=== PATIENT | female | born 1990 | race Two or more races ===

== ENCOUNTER 2023-09-18 09:26 | Emergency (ER) | payer MEDICAID ==
[~2023-09-18] VITALS: Ht 157.5 cm; Wt 61.3 kg
[2023-09-18] MEDS ORDERED: ONDANSETRON HCL 4 MG/2 ML VIAL IV ONE (10:00)
[2023-09-18] MEDS ORDERED: SODIUM CHLORIDE 0.9% 1,000 ML IVB ONE (10:00)
[2023-09-18] MEDS ORDERED: PANTOPRAZOLE 40 MG/10 ML VIAL INJ IV ONE (10:00)
[2023-09-18 10:25] LABS: Basophils # (auto) 0 10 ^3/uL (0-0.2); Basophils % (auto) 0.3 % (0.0-2.0); Eosinophils # (auto) 0 10 ^3/uL (0-0.8); Hematocrit 42.4 % (36.0-46.0); Hemoglobin 14.3 g/dL (12.2-16.2); Lymphocytes # (auto) 2.3 10 ^3/uL (0.4-5.4); Lymphocytes % (auto) 24.7 % (10.0-50.0); Mean Corpuscular Hemoglobin 31.4 pg (28.0-32.0); Mean Corpuscular Hgb Conc. 33.6 g/dL (32.0-36.0); Mean Corpuscular Volume 93.3 fL (80.0-100.0); Monocytes # (auto) 0.9 10 ^3/uL (0-1.3); Monocytes % (auto) 9.7 % (0.0-12.0); Neutrophils % (auto) 65.3 % (37.0-80.0); Red Blood Cells 4.55 10^6/uL (4.0-5.20); Red Cell Distribution Width 13.4 % (11.8-14.3); White Blood Cell 9.2 10^3/uL (4.4-10.8)
[2023-09-18 10:27] LABS: Alanine Aminotransferase 26 U/L (7-40); Albumin 5.1 g/dL (3.2-4.8); Alkaline Phosphatase 50 U/L (46-116); Anion Gap 16 (5-15); Aspartate Aminotransferase 19 U/L (13-40); BUN/Creatinine Ratio 22.4 (10.0-20.0); Blood Urea Nitrogen 19 mg/dL (9-23); Calcium 10.2 mg/dL (8.5-10.1); Carbon Dioxide 21 mmol/L (20-30); Chloride 100 mmol/L (98-107); Glucose 87 mg/dL (74-106); Potassium 3.9 mmol/L (3.5-5.1); Sodium 137 mmol/L (136-145)
[2023-09-18 10:28] LABS: Bilirubin, Total 0.7 mg/dL (0.2-1.0); Total Protein 7.9 g/dL (5.7-8.2)
[2023-09-18 10:39] LABS: Urine Bacteria NONE SEEN /hpf (None Seen); Urine Blood Negative /uL (Negative); Urine Clarity Clear (Clear); Urine Color Yellow (Yellow); Urine Mucus FEW (None Seen); Urine Protein, UAD 1+ (Negative); Urine Specific Gravity 1.031 (1.001-1.035); Urine WBC 3 /hpf (0 - 5)
[2023-09-18 11:34] LABS: INR 1.02 (0.9-1.15); Partial Thromboplastin Time 26.6 SEC (24.5-34.5); Prothrombin Time 10.9 sec (9.3-11.8)
[2023-09-18] MEDS ORDERED: ZOFR4T PO (12:36)
[2023-09-18] MEDS ORDERED: ACET-1304 PO (12:36)
[2023-09-18] MEDS ORDERED: OMEP20TA PO (12:36)
[2023-09-18 12:53] VITALS: BP 110/70; PULSE 78; RESP 19; TEMP 97.7; O2SAT 97
== END 2023-09-18 12:56 | disposition home or self-care (01) ==
LOC: ER 09:26
DX: K29.00 Acute gastritis without bleeding (principal); R10.2 Pelvic and perineal pain; F41.9 Anxiety disorder, unspecified; F32.9 Major depressive disorder, single episode, unspecified; F10.90 Alcohol use, unspecified, uncomplicated; Z98.890 Other specified postprocedural states; Z88.2 Allergy status to sulfonamides; Z79.899 Other long term (current) drug therapy; Y90.0 Blood alcohol level of less than 20 mg/100 ml
CPT/HCPCS: 36415; 74022; 80053; 81001; 81025; 83690; 84702; 85025; 85610; 85730; 96374; 96375; 99284; C9113; J2405

== ENCOUNTER 2024-03-16 10:56 | Inpatient (IN) | payer MEDICAID, OTHER ==
[~2024-03-16] VITALS: Ht 157.5 cm; Wt 65.1 kg
[~2024-03-16 10:56] MED LIST: ACET-1304 PO; OMEP20TA PO; ZOFR4T PO
[2024-03-16 11:30] LABS: Basophils # (auto) 0 10 ^3/uL (0-0.2); Basophils % (auto) 0.3 % (0.0-2.0); Eosinophils # (auto) 0 10 ^3/uL (0-0.8); Eosinophils % (auto) 0.2 % (0.0-7.0); Hematocrit 41.6 % (36.0-46.0); Hemoglobin 13.9 g/dL (12.2-16.2); Lymphocytes # (auto) 1.5 10 ^3/uL (0.4-5.4); Lymphocytes % (auto) 9.5 % (10.0-50.0); Mean Corpuscular Hemoglobin 31.6 pg (28.0-32.0); Mean Corpuscular Hgb Conc. 33.3 g/dL (32.0-36.0); Mean Corpuscular Volume 94.9 fL (80.0-100.0); Monocytes # (auto) 0.5 10 ^3/uL (0-1.3); Monocytes % (auto) 3.2 % (0.0-12.0); Neutrophils # (auto) 13.6 10 ^3/uL (1.6-8.6); Neutrophils % (auto) 86.8 % (37.0-80.0); Red Blood Cells 4.38 10^6/uL (4.0-5.20); Red Cell Distribution Width 13.8 % (11.8-14.3); White Blood Cell 15.7 10^3/uL (4.4-10.8)
[2024-03-16 11:45] LABS: INR 1.04 (0.9-1.15); Partial Thromboplastin Time 22.4 SEC (24.5-34.5)
[2024-03-16 11:47] LABS: Alanine Aminotransferase 29 U/L (7-40); Alkaline Phosphatase 45 U/L (46-116); Anion Gap 16 (5-15); Aspartate Aminotransferase 27 U/L (13-40); Blood Urea Nitrogen 14 mg/dL (9-23); Calcium 9.9 mg/dL (8.5-10.1); Carbon Dioxide 18 mmol/L (20-30); Chloride 108 mmol/L (98-107); Glucose 67 mg/dL (74-106); Potassium 3.8 mmol/L (3.5-5.1); Sodium 142 mmol/L (136-145)
[2024-03-16 11:48] LABS: Bilirubin, Total 0.5 mg/dL (0.2-1.0); Lactic Acid w/Reflex 5.9 mmol/L (0.4-2.0); Total Protein 7.9 g/dL (5.7-8.2)
[2024-03-16 11:59] LABS: Lipase 28 U/L (12-53)
[2024-03-16] MEDS: SODIUM CHLORIDE 0.9% 1,000 ML IVB ONE (12:08)
[2024-03-16] MEDS: METOCLOPRAMIDE HCL 5MG/ml INJ 2ml VIAL IV ONE (12:09)
[2024-03-16] MEDS: MORPHINE SULFATE INJ 2 MG/ml SYRG IV ONE (12:37)
[2024-03-16] MEDS: PIPERACILLIN-TAZOB 3.375GM 100 ML IV ONE (12:40)
[2024-03-16] MEDS: PANTOPRAZOLE 80 MG in SODIUM CHL 0.9% 100 ML IV ONE (13:20)
[2024-03-16] MEDS: SODIUM CHLORIDE 0.9% 1,000 ML IV ONE ×2 (14:09→16:36)
[2024-03-16] MEDS: PANTOPRAZOLE 40mg/50ML NS AE 50 ML IV ONE (14:10)
[2024-03-16] MEDS: OCTREOTIDE ACETATE 100 MCG in SODIUM CHL 0.9% 50 ML IV ONE (14:13)
[2024-03-16] MEDS: OCTREOTIDE ACETATE 500 MCG in SODIUM CHL 0.9% 99 ML IV SCH (14:29)
[2024-03-16] MEDS: NOREPINEPHRINE 8 MG/250ML KIT 250 ML IV ONE (15:20)
[2024-03-16] MEDS: NOREPINEPHRINE 8 MG/250ML KIT 250 ML IV SCH (15:20)
[2024-03-16] MEDS ORDERED: NITROGLYCERIN 0.4 MG SL TAB SL PRN (16:00)
[2024-03-16] MEDS ORDERED: MORPHINE SULFATE INJ 2 MG/ml SYRG IV PRN (16:00)
[2024-03-16] MEDS ORDERED: VANCOMYCIN PER PHARMACY 0 MG IV SCH (16:00)
[2024-03-16] MEDS ORDERED: ACETAMINOPHEN 325 MG TAB PO PRN (16:00)
[2024-03-16] MEDS: ONDANSETRON HCL 4 MG/2 ML VIAL IV ONE (16:10)
[2024-03-16] MEDS: CEFEPIME 1GM/ 50ML 50 ML IV ONE (16:32)
[2024-03-16 17:16] LABS: Urine Bacteria None Seen /hpf (None Seen)
[2024-03-16 17:28] LABS: Amphetamine Screen, Urine Neg (NEGATIVE)
[2024-03-16 17:29] LABS: Barbiturate Scree,Urine Neg (NEGATIVE); Benzodiazephine Screen, Urine Neg (NEGATIVE); Cannabinoid Screen, Urine Pos (NEGATIVE); Cocaine Screen, Urine Neg (NEGATIVE); Opiate Scree,Urine Neg (NEGATIVE); Phencyclidine Screen, Urine Neg (NEGATIVE)
[2024-03-16 17:38] LABS: Urine Blood Negative /uL (Negative); Urine Clarity Turbid (Clear); Urine Color Yellow (Yellow); Urine Mucus FEW (None Seen); Urine Protein, UAD 1+ (Negative); Urine Specific Gravity 1.035 (1.001-1.035); Urine Urobilinogen Normal (Negative); Urine WBC 5 /hpf (0 - 5)
[2024-03-16] MEDS: VANCOMYCIN 1GM/200ML 200 ML IV ONE (19:30)
[2024-03-16 19:42] VITALS: PULSE 80; RESP 18; O2SAT 97
[2024-03-16] MEDS: SODIUM CHLORIDE 0.9% 1,000 ML IV SCH (20:27)
[2024-03-16] MEDS: ONDANSETRON HCL 4 MG/2 ML VIAL IV PRN (20:30)
[2024-03-16] MEDS: OCTREOTIDE ACETATE 500 MCG/ML VL ONE (23:46)
[2024-03-17] MEDS: CEFEPIME 1GM/ 50ML 50 ML IV SCH (05:04)
[2024-03-17 06:36] LABS: Basophils # (auto) 0 10 ^3/uL (0-0.2); Basophils % (auto) 0.2 % (0.0-2.0); Eosinophils # (auto) 0 10 ^3/uL (0-0.8); Eosinophils % (auto) 0.1 % (0.0-7.0); Hematocrit 35.9 % (36.0-46.0); Hemoglobin 11.9 g/dL (12.2-16.2); Lymphocytes # (auto) 3.5 10 ^3/uL (0.4-5.4); Lymphocytes % (auto) 22.8 % (10.0-50.0); Mean Corpuscular Hemoglobin 31.2 pg (28.0-32.0); Mean Corpuscular Hgb Conc. 33.1 g/dL (32.0-36.0); Mean Corpuscular Volume 94.3 fL (80.0-100.0); Monocytes # (auto) 1.4 10 ^3/uL (0-1.3); Monocytes % (auto) 8.9 % (0.0-12.0); Neutrophils # (auto) 10.5 10 ^3/uL (1.6-8.6); Red Cell Distribution Width 13.7 % (11.8-14.3); White Blood Cell 15.5 10^3/uL (4.4-10.8)
[2024-03-17 06:43] LABS: Alanine Aminotransferase 24 U/L (7-40); Alkaline Phosphatase 36 U/L (46-116); Calcium 8.2 mg/dL (8.5-10.1); Chloride 111 mmol/L (98-107)
[2024-03-17 06:44] LABS: Albumin 3.7 g/dL (3.2-4.8); Anion Gap 8 (5-15); Aspartate Aminotransferase 12 U/L (13-40); BUN/Creatinine Ratio 15.9 (10.0-20.0); Bilirubin, Total 0.7 mg/dL (0.2-1.0); Blood Urea Nitrogen 10 mg/dL (9-23); Carbon Dioxide 21 mmol/L (20-30); Glucose 123 mg/dL (74-106); Potassium 3.9 mmol/L (3.5-5.1); Sodium 140 mmol/L (136-145)
[2024-03-17 07:30] VITALS: PULSE 70; RESP 16; O2SAT 97
[2024-03-17] MEDS: metroNIDAZOLE 500MG/100ML 100 ML IV SCH (14:27)
[2024-03-17] MEDS ORDERED: ALPRAZolam 0.25 MG TAB PO PRN (15:30)
[2024-03-17 15:38] LABS: Erythrocyte Sedimentation Rate 5 mm/hr (0-20)
[2024-03-17] MEDS: PANTOPRAZOLE 40 MG TAB PO SCH (16:44)
[2024-03-17 17:25] VITALS: BP 113/59; PULSE 87; RESP 18; TEMP 97.4; O2SAT 97
[2024-03-17] MEDS ORDERED: ESCI1TAB37 PO (17:28)
[2024-03-17] MEDS ORDERED: NITR100C6 PO (17:28)
[2024-03-17] MEDS ORDERED: PANT40T PO (17:28)
[2024-03-17] MEDS ORDERED: SEMA4INJ SC (17:28)
[2024-03-17 17:30] VITALS: PULSE 87; RESP 14; O2SAT 94
[2024-03-17] MEDS: VANCOMYCIN 1GM/200ML 200 ML IV SCH (18:30)
[2024-03-17 19:00] VITALS: PULSE 90
[2024-03-17 20:00] VITALS: PULSE 90; RESP 19; O2SAT 98
[2024-03-17 21:00] VITALS: BP 113/77; PULSE 65; RESP 19; TEMP 98.4; O2SAT 95
[2024-03-18 01:00] VITALS: BP 97/65; PULSE 67; RESP 17; TEMP 98.3; O2SAT 96
[2024-03-18 05:00] VITALS: BP 117/77; PULSE 61; RESP 17; TEMP 98.5; O2SAT 97
[2024-03-18 06:34] LABS: Basophils # (auto) 0 10 ^3/uL (0-0.2); Basophils % (auto) 0.5 % (0.0-2.0); Eosinophils # (auto) 0.1 10 ^3/uL (0-0.8); Eosinophils % (auto) 0.8 % (0.0-7.0); Hematocrit 35.3 % (36.0-46.0); Hemoglobin 11.8 g/dL (12.2-16.2); Lymphocytes % (auto) 31.5 % (10.0-50.0); Mean Corpuscular Hemoglobin 31.8 pg (28.0-32.0); Mean Corpuscular Hgb Conc. 33.3 g/dL (32.0-36.0); Mean Corpuscular Volume 95.6 fL (80.0-100.0); Monocytes # (auto) 0.6 10 ^3/uL (0-1.3); Monocytes % (auto) 9.3 % (0.0-12.0); Neutrophils # (auto) 3.7 10 ^3/uL (1.6-8.6); Neutrophils % (auto) 57.9 % (37.0-80.0); Red Cell Distribution Width 13.9 % (11.8-14.3); White Blood Cell 6.4 10^3/uL (4.4-10.8)
[2024-03-18 06:41] LABS: Chloride 112 mmol/L (98-107); Potassium 3.7 mmol/L (3.5-5.1); Sodium 141 mmol/L (136-145)
[2024-03-18 06:42] LABS: Anion Gap 6 (5-15); Calcium 8.3 mg/dL (8.5-10.1); Carbon Dioxide 23 mmol/L (20-30)
[2024-03-18 06:47] LABS: Glucose 79 mg/dL (74-106)
[2024-03-18 06:48] LABS: BUN/Creatinine Ratio 8.8 (10.0-20.0); Blood Urea Nitrogen < 5 mg/dL (9-23)
[2024-03-18 09:00] VITALS: BP 102/65; PULSE 63; RESP 18; TEMP 98.2; O2SAT 92
[2024-03-18 13:00] VITALS: BP 110/74; PULSE 66; RESP 18; TEMP 98.2; O2SAT 100
== END 2024-03-18 14:05 | disposition home or self-care (01) | DRG 377 ==
LOC: ER 10:56 → TELE 15:53 → TELE-WESTW 03-17 17:21 → WEST WING 03-17 21:02
PROVIDERS: ADMIT Nurse Practitioner Family; ATTEND Nurse Practitioner Acute Care
DX: K29.21 Alcoholic gastritis with bleeding (principal); R57.1 Hypovolemic shock; R65.10 Systemic inflammatory response syndrome (SIRS) of non-infectious origin without acute organ dysfunction; K52.9 Noninfective gastroenteritis and colitis, unspecified; F10.10 Alcohol abuse, uncomplicated; K76.0 Fatty (change of) liver, not elsewhere classified; F12.10 Cannabis abuse, uncomplicated; Z72.0 Tobacco use; Y90.9 Presence of alcohol in blood, level not specified
CPT/HCPCS: 36415; 71045; 74176; 80048; 80053; 80307; 80320; 81001; 81025; 83605; 83690; 84702; 85025; 85610; 85652; 85730; 86141; 86850; 86900; 86901; 87040; C9113; G0378; J2405; J2543; J3490